=== PATIENT | female | born 1945 | race Caucasian/White ===

== ENCOUNTER 2018-01-14 20:55 | Emergency (ER) | payer OTHER, MEDICAID ==
[~2018-01-14] VITALS: Ht 162.6 cm; Wt 89.8 kg
[~2018-01-14 20:55] MED LIST: AMLO5TAB4 PO; ASA81 PO; ATOR20TA64 PO; CARV6.2554 PO; CLOP75TA2 PO; CYAN10009 PO; FAMO40TA7 PO; ISO10 PO; LOSA25TA3 PO; SACC250C3 PO
[2018-01-14 21:06] VITALS: BP_SYST 165
[2018-01-14] MEDS ORDERED: ALBUTEROL SULFATE 0.083% 2.5 MG/3 ML VIAL.NEB IH ONE (21:30)
[2018-01-14] MEDS ORDERED: PREDNISONE 20 MG TABLET PO ONE (21:30)
[2018-01-14] MEDS ORDERED: IPRATROPIUM BROM 0.5 MG/2.5 ML VIAL.NEB (ATROVENT) IH ONE (21:30)
[2018-01-14 21:48] LABS: BASOPHILS % (AUTO) 0.5 % (0.0-2.0); EOSINOPHILS # (AUTO) 0.3 K/uL (0.0-0.4); EOSINOPHILS % (AUTO) 4.6 % (0.0-4.0); HEMATOCRIT 34.5 % (36-48); HEMOGLOBIN 11.5 g/dL (12.0-16.0); LYMPHOCYTES # (AUTO) 1.5 K/uL (1.0-5.5); LYMPHOCYTES % (AUTO) 20.8 % (20.5-51.5); MEAN CORPUSCULAR HEMOGLOBIN 30 pg (27-31); MEAN CORPUSCULAR HGB CONC 34 % (32-36); MEAN CORPUSCULAR VOLUME 89 fL (79.0-98.0); MONOCYTES # (AUTO) 0.6 K/uL (0.0-1.0); MONOCYTES % (AUTO) 8.8 % (1.7-9.3); NEUTROPHILS # (AUTO) 4.6 K/uL (1.8-7.7); NEUTROPHILS % (AUTO) 65.3 % (40.0-70.0); PLATELET COUNT (AUTO) 255 K/uL (130-430); RED BLOOD CELL COUNT(AUTO) 3.89 MIL/uL (4.2-6.2); RED CELL DISTRIBUTION WIDTH 12.7 % (9.0-15.0)
[2018-01-14 21:53] LABS: ANION GAP 11 (5-15); CHLORIDE 101 mmol/L (98-107); CREATININE 1.07 mg/dL (0.55-1.30); GLUCOSE 220 mg/dL (70-99); POTASSIUM 3.9 mmol/L (3.5-5.1); SODIUM SERUM 135 mmol/L (136-145); UREA NITROGEN, BLOOD 20 mg/dL (8-21)
[2018-01-14 21:58] LABS: ALANINE AMINOTRANSFERASE 24 U/L (12-78); ALBUMIN 3.5 g/dL (3.4-4.8); ASPARTATE AMINOTRANSFERASE 20 U/L (10-37); TOTAL BILIRUBIN 0.4 mg/dL (0.0-1.0)
[2018-01-14 21:59] LABS: PROTHROMBIN TIME 10.5 SECS (9.5-12.5)
[2018-01-14 23:05] VITALS: BP_SYST 148
== END 2018-01-14 23:05 | disposition home or self-care (01) ==
LOC: SED 20:55
DX: R06.02 Shortness of breath (principal); R05 Cough; R42 Dizziness and giddiness; I25.2 Old myocardial infarction; K21.9 Gastro-esophageal reflux disease without esophagitis; I10 Essential (primary) hypertension; E78.00 Pure hypercholesterolemia, unspecified; Z90.49 Acquired absence of other specified parts of digestive tract; Z79.82 Long term (current) use of aspirin; Z96.659 Presence of unspecified artificial knee joint; Z79.899 Other long term (current) drug therapy
CPT/HCPCS: 36415; 71045; 80053; 83880; 84484; 85025; 85610; 85730; 93005; 94640; 99285; J7512

== ENCOUNTER 2018-02-27 20:19 | Emergency (ER) | payer OTHER, MEDICAID ==
[~2018-02-27] VITALS: Ht 162.6 cm; Wt 104.3 kg
[~2018-02-27 20:19] MED LIST changes: -ASA81 PO; -CYAN10009 PO; -SACC250C3 PO
[2018-02-27 20:24] VITALS: BP_SYST 146
[2018-02-27] MEDS ORDERED: LORazepam 2 MG/ML VIAL (FOR ER USE) IVP ONE (22:00)
[2018-02-27 23:30] VITALS: BP_SYST 134
== END 2018-02-27 23:30 | disposition home or self-care (01) ==
LOC: SED 20:19
DX: S43.004A Unspecified dislocation of right shoulder joint, initial encounter (principal); I10 Essential (primary) hypertension; E78.00 Pure hypercholesterolemia, unspecified; I25.2 Old myocardial infarction; Z88.5 Allergy status to narcotic agent; Z79.899 Other long term (current) drug therapy; X58.XXXA Exposure to other specified factors, initial encounter; Y93.89 Activity, other specified; Y92.89 Other specified places as the place of occurrence of the external cause; Y99.8 Other external cause status
CPT/HCPCS: 23650; 73030; 96374; 99284; J2060

== ENCOUNTER 2019-05-19 11:47 | Emergency (ER) | payer OTHER, MEDICAID ==
[~2019-05-19] VITALS: Ht 154.9 cm; Wt 88.5 kg
[2019-05-19 11:47] VITALS: BP_SYST 129
--- NOTE | 2019-05-19 11:50 | NUR ---
Patient triaged and placed in waiting room. VSS and patient appears in no acute distress at this time. Accompanied by DAUGHTER, awaiting available bed, and MD notified of need for MSE.
--- NOTE | 2019-05-19 12:10 | NUR ---
TAKEN TO RADIOLOGY VIA WHEELCHAIR
--- NOTE | 2019-05-19 13:57 | NUR ---
DMITRI BACK TO [facility] AND REPORT GIVEN TO KAELA
--- NOTE | 2019-05-19 14:08 | NUR ---
Pt AAOx4 ambualted into ED c/o 05/24 pain, numbness and tingling to L hand and L thumb x 2 days r/t IV insertion attempts made yesterday at [facility]. Discoloration noted to site. No other injuries/complaints per pt/noted. Will continue to monitor.
--- NOTE | 2019-05-19 14:18 | NUR ---
DR MASCORRO AT BEDSIDE FOR EVALUATION
[2019-05-19] MEDS ORDERED: ACETAMINOPHEN 325 MG TABLET PO ONE (14:30)
--- NOTE | 2019-05-19 14:42 | NUR ---
Patient given written and verbal discharge instructions and verbalizes understanding. ER MD Stevens discussed with patient the results and treatment provided. Patient in stable condition. ID arm band removed. Rx of Tylenol, Neurontin given. Patient educated on pain management and to follow up with PMD. Pain Scale 2. Opportunity for questions provided and answered. Medication side effect fact sheet provided.
[2019-05-19 14:43] VITALS: BP_SYST 133
== END 2019-05-19 14:43 | disposition home or self-care (01) ==
LOC: SED 11:47
DX: M79.642 Pain in left hand (principal); I25.2 Old myocardial infarction; K21.9 Gastro-esophageal reflux disease without esophagitis; I10 Essential (primary) hypertension; E78.00 Pure hypercholesterolemia, unspecified; Z88.6 Allergy status to analgesic agent; Z88.8 Allergy status to other drugs, medicaments and biological substances; Z79.899 Other long term (current) drug therapy
CPT/HCPCS: 99283

== ENCOUNTER 2019-11-26 16:25 | Emergency (ER) | payer OTHER, MEDICAID ==
[~2019-11-26] VITALS: Ht 157.5 cm; Wt 86.2 kg
[2019-11-26 16:25] VITALS: BP_SYST 160
--- NOTE | 2019-11-26 16:27 | NUR ---
TRPatient triaged and placed in waiting room. VSS and patient appears in no acute distress at this time. Accompanied by DAUGHTER, awaiting available bed, and MD notified of need for MSE.
--- NOTE | 2019-11-26 18:50 | NUR ---
Patient to ER bed 7 to gown for evaluation. Side rails up. Assumed care.
--- NOTE | 2019-11-26 19:09 | NUR ---
Patient arrived via POV with family. Patient c/c of pain after mechanical fall. Patient fell down 2 steps, and hit wall. Striking head, no LOC. Patient c/c of left elbow pain, bilateral knee pain, and patient is on plavix. Patient states history of right shoulder dislocation x3, and arthritis. Patient has abrasion to right knee, and bruise to left knee. Patient states pain to left elbow is 7/10, and pain is noted to right and left lateral knees. Will continue to follow up and monitor.
--- NOTE | 2019-11-26 19:10 | NUR ---
ER Dr. Galindo at bedside examining patient.
[2019-11-26] MEDS ORDERED: ACETAMINOPHEN 500 MG TABLET PO ONE (19:30)
--- NOTE | 2019-11-26 19:30 | NUR ---
Pt has been medicated with Tylenol 1000mg for Left shoulder and head pain S/P fall. Tolerated medication well, will continue to monitor.
[2019-11-26 20:45] VITALS: BP_SYST 142
--- NOTE | 2019-11-26 20:46 | NUR ---
Patient given written and verbal discharge instructions and verbalizes understanding. ER MD discussed with patient the results and treatment provided. Patient in stable condition. ID arm band removed. Patient educated on pain management and to follow up with PMD. Pain Scale 0. Opportunity for questions provided and answered. Medication side effect fact sheet provided.
== END 2019-11-26 20:45 | disposition home or self-care (01) ==
LOC: SED 16:25
DX: M25.522 Pain in left elbow (principal); M25.511 Pain in right shoulder; M25.562 Pain in left knee; M25.561 Pain in right knee; R51 Headache; W18.09XA Striking against other object with subsequent fall, initial encounter; Y93.89 Activity, other specified; Y92.89 Other specified places as the place of occurrence of the external cause; Y99.8 Other external cause status
CPT/HCPCS: 70450-TC; 73030; 99284

== ENCOUNTER 2022-07-23 11:28 | Emergency (ER) | payer OTHER, MEDICAID ==
[~2022-07-23] VITALS: Ht 162.6 cm; Wt 83.9 kg
[2022-07-23 11:33] VITALS: BP_SYST 184
--- NOTE | 2022-07-23 11:39 | NUR ---
Triaged pt and placed in waiting room until bed becomes available.
--- NOTE | 2022-07-23 14:10 | NUR ---
DR RASHEED TO TRIAGE ROOM, CALLED PT, UNABLE TO LOCATE
--- NOTE | 2022-07-23 15:40 | NUR ---
Went to call pt so Dr. Rawls can assess bu no answer. Looked in waiting room, lobby, bathroom, and outside area but pt no where to be found.
--- NOTE | 2022-07-23 17:13 | NUR ---
Pt came back to ER waiting room after being gone for a few hours. Dr. Ayala notified.
--- NOTE | 2022-07-23 17:19 | NUR ---
DR RASHEED TO TRIAGE ROOM TO EVALUATE PT.
[2022-07-23 17:25] VITALS: BP_SYST 131
--- NOTE | 2022-07-23 17:27 | NUR ---
Patient given written and verbal discharge instructions and verbalizes understanding. ER MD discussed with patient the results and treatment provided. Patient in stable condition. ID arm band removed. Patient educated on pain management and to follow up with PMD. Pain Scale 0/10. Opportunity for questions provided and answered. Medication side effect fact sheet provided.
== END 2022-07-23 17:27 | disposition home or self-care (01) ==
LOC: SED 11:28
DX: S00.412A Abrasion of left ear, initial encounter (principal); H92.22 Otorrhagia, left ear; Z79.899 Other long term (current) drug therapy; X58.XXXA Exposure to other specified factors, initial encounter; Y93.89 Activity, other specified; Y92.89 Other specified places as the place of occurrence of the external cause; Y99.8 Other external cause status
CPT/HCPCS: 70450-TC; 76376; 99284